=== PATIENT | male | born 1940 | race Caucasian/White ===

== ENCOUNTER → 2021-12-25 | Outpatient (CLI) | payer MEDICARE, OTHER ==
[~2021-12-25] MED LIST: COUM2.5T17 PO; COUM7.5T6 PO; CYAN100049 PO; DRIS50003 PO; FINA5TAB2 PO; FLEEENE4 PR; FLOM0.4C39 PO; FURO20TA2 PO; GABA-282 PO; GLUC500T PO; HYDR-3713 PO; INSUHUMDS SC; LISI2.5T9 PO; LOVA20TA2 PO; METF500T13 PO; MILK120011 PO; ONDA-83 PO; PANT40TA29 PO; PERCOCET PO; POLY17PO18 PO; SENN-53 PO
== END ==
LOC: M PLAIMG 10:05
PROVIDERS: ATTEND Family Medicine
DX: R06.02 Shortness of breath (principal)

== ENCOUNTER → 2022-05-22 | Outpatient (CLI) | payer MEDICARE, BC, OTHER ==
[2022-05-22 12:48] LABS: HEMOGLOBIN A1c 5.5 % (4.0-6.0)
== END ==
LOC: M LAB 09:59
PROVIDERS: ATTEND Nurse Practitioner Family
DX: R73.03 Prediabetes (principal)

== ENCOUNTER → 2022-07-22 | Outpatient (CLI) | payer MEDICARE, BC, OTHER | LOC: M PLAIMG 10:08 | PROVIDERS: ATTEND Nurse Practitioner Family | DX: R06.02 Shortness of breath (principal); R05.9 Cough, unspecified; M25.531 Pain in right wrist; M79.89 Other specified soft tissue disorders; I70.0 Atherosclerosis of aorta; J98.4 Other disorders of lung; M19.041 Primary osteoarthritis, right hand; M19.031 Primary osteoarthritis, right wrist; M85.841 Other specified disorders of bone density and structure, right hand ==

== ENCOUNTER → 2022-08-08 | Outpatient (REF) | payer MEDICARE, OTHER | LOC: M LAB REF 17:02 | PROVIDERS: ATTEND Nurse Practitioner Family | DX: R41.0 Disorientation, unspecified (principal) ==